=== PATIENT | male | born 1990 | race Caucasian/White ===

== ENCOUNTER 2021-09-25 04:15 | Emergency (ER) | payer OTHER ==
[~2021-09-25] VITALS: Ht 165.1 cm; Wt 68.0 kg
--- NOTE | 2021-09-25 04:27 | NUR ---
PT MARGA LUCERO, PREBOOK. TAKEN TO CHAIR
[2021-09-25 04:28] VITALS: BP 147/118
--- NOTE | 2021-09-25 04:38 | NUR ---
Dr. Dubois examining patient.
--- NOTE | 2021-09-25 04:46 | NUR ---
PT TAKEN TO CT
--- NOTE | 2021-09-25 04:58 | NUR ---
PT RETURN FROM CT
[2021-09-25] MEDS ORDERED: ACETAMINOPHEN EXTRA STRENGTH 500 MG TAB PO ONE (05:00)
[2021-09-25 06:04] VITALS: BP 128/81
--- NOTE | 2021-09-25 06:05 | NUR ---
PATIENT [facility] [facility]. PATIENT EXAMINED BY DR. LAND. PATIENT MEDICALLY CLEARED AND RELEASED IN CUSTODY IN STABLE CONDITION. ORIGINAL PRE-BOOK FORM GIVEN TO OFFICER ARTHUR.
== END 2021-09-25 06:05 ==
LOC: MED 04:15
DX: S09.90XA Unspecified injury of head, initial encounter (principal); R41.82 Altered mental status, unspecified; Z02.89 Encounter for other administrative examinations; Y04.0XXA Assault by unarmed brawl or fight, initial encounter; Y93.89 Activity, other specified; Y92.89 Other specified places as the place of occurrence of the external cause; Y99.8 Other external cause status
CPT/HCPCS: 70450; 70486; 72125; 99285